=== PATIENT | female | born 1930 | race Hispanic/Latino ===

== ENCOUNTER 2017-12-21 17:00 | Inpatient (IN) | payer MEDICARE, BC ==
[2017-12-22] MEDS ORDERED: Patient's Own Med (Famotidine [Pepcid] 40 MG) PO SCH (22:00)
[2017-12-23 07:25] LABS: BASO # 0.1 K/uL (0.0-0.2); EOS # 0.3 K/uL (0.0-0.7); EOS % 3.8 % (0.0-4.0); HEMOGLOBIN 13.6 g/dL (12.0-16.0); LYMPH # 1.2 K/uL (1.0-4.3); LYMPH % 16.9 % (20.0-40.0); MEAN CELL VOLUME 92.8 fl (81.0-99.0); MEAN CORPUSCULAR HEMOGLOBIN 31.4 pg (27.0-31.0); MEAN CORPUSCULAR HGB CONC 33.8 g/dL (33.0-37.0); MONO # 0.6 K/uL (0.0-0.8); MONO % 8.2 % (0.0-10.0); NEUT # 5.1 K/uL (1.8-7.0); NEUT % 70.1 % (50.0-75.0); RBC 4.35 Mil/uL (3.80-5.20); RED CELL DISTRIBUTION WIDTH 13.3 % (11.5-14.5); WHITE BLOOD COUNT 7.3 K/uL (4.8-10.8)
[2017-12-23] MEDS ORDERED: CYANOCOBALAMIN (VITAMIN B-12) 250 MCG TABLET PO SCH (09:00)
[2017-12-23] MEDS ORDERED: Patient's Own Med (Raloxifene [Evista] 60 MG) PO SCH (09:00)
[2017-12-23 09:17] LABS: ALB/GLOB RATIO 1.2 (1.0-2.1); ALBUMIN 3.4 g/dL (3.5-5.0); ALT/SGPT 28 U/L (9-52); AST/SGOT 31 U/L (14-36); BLOOD UREA NITROGEN 23 mg/dl (7-17); CALCIUM 9.1 mg/dL (8.4-10.2); GFR NON-AFRICAN AMERICAN 52
[2017-12-23 11:01] VITALS: BMI 25.1
--- NOTE | 2017-12-23 12:46 | CP.PCM.CON ---
History of Present Illness - History of Present Illness History of Present Illness: 87 year old female admitted to acute rehab with diagnosis of subdural heamatoma, with other diagnosis of aortic stenosis, melanoma, shoulder injury now for inpatient rehab. Review of Systems - Musculoskeletal Musculoskeletal: Muscle Weakness Past Patient History - Infectious Disease Hx of Infectious Diseases: None - Tetanus Immunizations Tetanus Immunization: Unknown - Past Medical History & Family History Past Medical History?: Yes - Past Social History Smoking Status: Never Smoked - CARDIAC Hx Cardiac Disorders: (aortic stenosis) Hx Atrial Fibrillation: Yes Hx Congestive Heart Failure: Yes Hx Hypercholesterolemia: Yes Hx Hypertension: Yes - NEUROLOGICAL Hx Dizziness: Yes Hx Syncope: Yes - HEENT Hx Cataracts: Yes (b/l Sx) Other/Comment: hard of hearing left ear from fall - HEMATOLOGICAL/ONCOLOGICAL Hx AIDS: No Hx Cancer: Yes (melanoma back mass) Hx Human Immunodeficiency Virus (HIV): No - INTEGUMENTARY Hx Melanoma: Yes (back mass) - MUSCULOSKELETAL/RHEUMATOLOGICAL Hx Falls: Yes Hx Fractures: Yes (left shoulder) Hx Osteoporosis: Yes - GENITOURINARY/GYNECOLOGICAL Hx Urinary Tract Infection: Yes - PSYCHIATRIC Hx Substance Use: No - SURGICAL HISTORY Hx Cardiac Catheterization: Yes Hx Hysterectomy: Yes Hx Valve Replacement: Yes (aortic valve) - ANESTHESIA Hx Anesthesia: Yes Hx Anesthesia Reactions: No Hx Malignant Hyperthermia: No Meds Allergies/Adverse Reactions: Allergies Allergy/AdvReac Type Severity Reaction Status Date / Time No Known Allergies Allergy Verified 10/08/16 11:44 - Medications Medications: Current Medications Acetaminophen (Tylenol 325mg Tab) 650 mg PO Q4 PRN PRN Reason: Pain scale 1-10. Amiodarone HCl (Cordarone) 200 mg PO QPM [facility] Last Admin: 12/22/17 18:27 Dose: 200 mg Atorvastatin Calcium (Lipitor) 10 mg PO HS [facility] Last Admin: 12/22/17 21:59 Dose: 10 mg Calcium Carbonate (Oscal) 500 mg PO DAILY [facility] Last Admin: 12/23/17 08:34 Dose: 500 mg Cyanocobalamin (Vitamin B-12) 250 mcg PO DAILY [facility] Last Admin: 12/23/17 08:33 Dose: 250 mcg Famotidine (Pepcid) 40 mg PO [facility] Last Admin: 12/22/17 21:59 Dose: 40 mg Folic Acid (Folic Acid) 1 mg PO DAILY [facility] Last Admin: 12/23/17 08:35 Dose: 1 mg Furosemide (Lasix) 20 mg PO DAILY [facility] Last Admin: 12/23/17 08:33 Dose: 20 mg Pyridoxine HCl (Vitamin B6) 25 mg PO DAILY [facility] Last Admin: 12/23/17 08:35 Dose: 25 mg Physical Exam - Constitutional Appears: Well - Head Exam Head Exam: ATRAUMATIC, NORMAL INSPECTION, NORMOCEPHALIC - Eye Exam Eye Exam: PERRL Pupil Exam: NORMAL ACCOMODATION, PERRL - ENT Exam ENT Exam: Mucous Membranes Moist, Normal Exam - Neck Exam Neck exam: Positive for: Normal Inspection - Respiratory Exam Respiratory Exam: Clear to Auscultation Bilateral, NORMAL BREATHING PATTERN - Cardiovascular Exam Cardiovascular Exam: REGULAR RHYTHM - GI/Abdominal Exam GI & Abdominal Exam: Normal Bowel Sounds - Rectal Exam Rectal Exam: NORMAL INSPECTION - Exam External exam: NORMAL EXTERNAL EXAM - Extremities Exam Extremities exam: Positive for: normal inspection Additional comments: problems with decreased strength, balance - Back Exam Back exam: NORMAL INSPECTION - Neurological Exam Neurological exam: Alert - Psychiatric Exam Psychiatric exam: Normal Affect, Normal Mood - Skin Skin Exam: Dry, Normal Color, Warm Results - Vital Signs Recent Vital Signs: Last Vital Signs Temp 97.7 F 12/23/17 07:30 Pulse 60 12/23/17 07:30 Resp 20 12/23/17 07:30 BP 125/55 L 12/23/17 08:33 Pulse Ox 96 12/23/17 07:30 - Labs Result Diagrams: 12/23/17 05:20 12/23/17 08:30 Labs: Laboratory Results - last 24 hr 12/23/17 12/23/17 12/23/17 05:20 05:20 08:30 WBC 7.3 RBC 4.35 Hgb 13.6 Hct 40.3 MCV 92.8 MCH 31.4 H MCHC 33.8 RDW 13.3 Plt Count 133 MPV 9.0 Neut % (Auto) 70.1 Lymph % (Auto) 16.9 L [place] % (Auto) 8.2 Eos % (Auto) 3.8 Baso % (Auto) 1.0 Neut # (Auto) 5.1 Lymph # (Auto) 1.2 [place] # (Auto) 0.6 Eos # (Auto) 0.3 Baso # (Auto) 0.1 Sodium 140 Potassium 4.2 Chloride 109 H Carbon Dioxide 25 Anion Gap 10 BUN 23 H Creatinine 1.0 Est GFR ( Amer) > 60 Est GFR (Non-Af Amer) 52 Random Glucose 86 Calcium 9.1 Magnesium 2.2 Total Bilirubin 0.8 AST 31 ALT 28 Alkaline Phosphatase 47 Total Protein 6.3 Albumin 3.4 L Globulin 2.9 Albumin/Globulin Ratio 1.2 Vitamin B12 > 1000 H TSH 3rd Generation 3.03 Assessment & Plan (1) Facial bones, closed fracture Status: Acute (2) Head injury Status: Acute (3) Humerus fracture Status: Acute (4) Impacted cerumen of right ear Status: Acute (5) Metacarpal bone fracture Status: Acute (6) Near syncope Status: Acute (7) Orbital floor fracture Status: Acute Priority: Medium (8) Subdural hematoma Assessment and Plan: plan for physical, occupational, rec therapy for range of motion, strengthening, transfers and gait training, ADL eval and equipment evaluation Status: Acute
--- NOTE | 2017-12-23 12:52 | PCM.OPOC ---
Physiatry Overall Plan of Care - Overall Plan of Care Estimated Length of Stay in Weeks: 3 Rehab Impairment: Mobility, Gait, Balance, Coordination Etiologic Diagnosis: Traumatic Brain Injury Rehab/Medical Prognosis: Fair - Anticipated Interventions Physical Therapy:: Yes Occupational Therapy:: Yes Speech Therapy:: Yes Recreational Therapy:: Yes - Therapy Goals Bed Mobility: Independent Ambulation: Supervision Functional Positional Changes:: Independent - Functional Outcomes Functional Outcomes: fair - Discharge Plan Identification of Barriers to Discharge: Cognition Discharge Destination: Home
--- NOTE | 2017-12-23 15:06 | CP.PCM.CON ---
History of Present Illness - History of Present Illness History of Present Illness: Neurology Consultation Note: Mrs. Boo is an 87-year-old woman with a past medical history of atrial fibrillation (not on anticoagulation), osteoporosis, aortic stenosis s/p TAVR, HTN, dyslipidemia, melanoma s/p removal, who was transferred to acute rehab after [place] [facility] [place] that resulted in a small SDH on the left side along with temporal/occipital bone fracture. She continues to have left ear pain and headache. She has limitation of movement on the left upper extremity due to a previous fall and shoulder injury. Otherwise, the patient has no complaints and is ready for rehab. Review of Systems - Constitutional Constitutional: absent: As Per HPI, Anorexia, Chills, Daytime Sleepiness, Excessive Sweating, Fatigue, Fever, Frequent Falls, Headache, Increased Appetite, Lethargy, Malaise, Night Sweats, Snoring, Sleep Apnea, Weight Gain, Weight Loss, Weakness, Other - EENT Eyes: absent: As Per HPI, Blind Spots, Blurred Vision, Change in Vision, Decreased Night Vision, Diplopia, Discharge, Dry Eye, Exophthalmos, Floaters, Irritation, Itchy Eyes, Loss of Peripheral Vision, Pain, Photophobia, Requires Corrective Lenses, Sees Flashes, Spots in Vision, Tunnel Vision, Other Visual Disturbances, Loss of Vision, Other Ears: Decreased Hearing Nose/Mouth/Throat: absent: As Per HPI, Epistaxis, Nasal Congestion, Nasal Discharge, Nasal Obstruction, Nasal Trauma, Nose Pain, Post Nasal Drip, Sinus Pain, Sinus Pressure, Bleeding Gums, Change in Voice, Dental Pain, Dry Mouth, Dysphagia, Halitosis, Hoarsness, Lip Swelling, Mouth Lesions, Mouth Pain, Odynophagia, Sore Throat, Throat Swelling, Tongue Swelling, Facial Pain, Neck P ain, Neck Mass, Other - Cardiovascular Cardiovascular: As Per HPI - Respiratory Respiratory: absent: As Per HPI, Cough, Dyspnea, Hemoptysis, Dyspnea on Exertion, Wheezing, Snoring, Stridor, Pain on Inspiration, Chest Congestion, Excessive Mucous Production, Change in Mucous Color, Pain with Coughing, Other - Gastrointestinal Gastrointestinal: absent: As Per HPI, Abdominal Pain, Belching, Bloating, Change in Bowel Habits, Change in Stool Character, Coffee Ground Emesis, Constipation, Cramping, Diarrhea, Dyspepsia, Dysphagia, Early Satiety, Excessive Flatus, Fecal Incontinence, Heartburn, Hematemesis, Hematochezia, Loose Stools, Melena, Nausea, Odynophagia, Temesmus, Vomiting, Other - Musculoskeletal Musculoskeletal: As Per HPI - Neurological Neurological: As Per HPI - Psychiatric Psychiatric: absent: As Per HPI, Abnormal Sleep Pattern, Anhedonia, Anxiety, Auditory Hallucinations, Behavioral Changes, Change in Appetite, Change in Libido, Confusion, Depression, Difficulty Concentrating, Hallucinations, Homicidal Ideation, Hopelessness, Irritability, Memory Loss, Mood Swings, Panic Attacks, Paranoia, Suicidal Ideation, Visual Hallucinations, Tactile [place] llucinations, Other - Endocrine Endocrine: absent: As Per HPI, Change in Body Appearance, Change in Libido, Cold Intolorance, Deepening of Voice, Excessive Sweating, Fatigue, Flushing, Heat Intolorance, Increase in Ring/Shoe/Hat Size, Palpitations, Polydipsia, Polyphagia, Polyuria, Other - Hematologic/Lymphatic Hematologic: As Per HPI Past Patient History - Infectious Disease Hx of Infectious Diseases: None - Tetanus Immunizations Tetanus Immunization: Unknown - Past Medical History & Family History Past Medical History?: Yes - Past Social History Smoking Status: Never Smoked - CARDIAC Hx Cardiac Disorders: (aortic stenosis) Hx Atrial Fibrillation: Yes Hx Congestive Heart Failure: Yes Hx Hypercholesterolemia: Yes Hx Hypertension: Yes - NEUROLOGICAL Hx Dizziness: Yes Hx Syncope: Yes - HEENT Hx Cataracts: Yes (b/l Sx) Other/Comment: hard of hearing left ear from fall - HEMATOLOGICAL/ONCOLOGICAL Hx AIDS: No Hx Cancer: Yes (melanoma back mass) Hx Human Immunodeficiency Virus (HIV): No - INTEGUMENTARY Hx Melanoma: Yes (back mass) - MUSCULOSKELETAL/RHEUMATOLOGICAL Hx Falls: Yes Hx Fractures: Yes (left shoulder) Hx Osteoporosis: Yes - GENITOURINARY/GYNECOLOGICAL Hx Urinary Tract Infection: Yes - PSYCHIATRIC Hx Substance Use: No - SURGICAL HISTORY Hx Cardiac Catheterization: Yes Hx Hysterectomy: Yes Hx Valve Replacement: Yes (aortic valve) - ANESTHESIA Hx Anesthesia: Yes Hx Anesthesia Reactions: No Hx Malignant Hyperthermia: No Meds Allergies/Adverse Reactions: Allergies Allergy/AdvReac Type Severity Reaction Status Date / Time No Known Allergies Allergy Verified 10/08/16 11:44 - Medications Medications: Current Medications Acetaminophen (Tylenol 325mg Tab) 650 mg PO Q4 PRN PRN Reason: Pain scale 1-10. Last Admin: 12/23/17 13:04 Dose: 650 mg Amiodarone HCl (Cordarone) 200 mg PO QPM [facility] Last Admin: 12/22/17 18:27 Dose: 200 mg Atorvastatin Calcium (Lipitor) 10 mg PO HS [facility] Last Admin: 12/22/17 21:59 Dose: 10 mg Calcium Carbonate (Oscal) 500 mg PO DAILY [facility] Last Admin: 12/23/17 08:34 Dose: 500 mg Famotidine (Pepcid) 40 mg PO HS [facility] Last Admin: 12/22/17 21:59 Dose: 40 mg Folic Acid (Folic Acid) 1 mg PO DAILY [facility] Last Admin: 12/23/17 08:35 Dose: 1 mg Furosemide (Lasix) 20 mg PO DAILY [facility] Last Admin: 12/23/17 08:33 Dose: 20 mg Home Med (Raloxifene [Evista]) 60 mg PO DAILY [facility] Pyridoxine HCl (Vitamin B6) 25 mg PO DAILY [facility] Last Admin: 12/23/17 08:35 Dose: 25 mg Physical Exam - Constitutional Appears: Well - Head Exam Additional comments: left occipital fracture - Eye Exam Eye Exam: EOMI, Normal appearance, PERRL - ENT Exam ENT Exam: Mucous Membranes Moist, Normal Exam - Respiratory Exam Respiratory Exam: Clear to Auscultation Bilateral, NORMAL BREATHING PATTERN - Cardiovascular Exam Cardiovascular Exam: REGULAR RHYTHM - GI/Abdominal Exam GI & Abdominal Exam: Normal Bowel Sounds, Soft. absent: Tenderness - Extremities Exam Extremities exam: Positive for: normal inspection - Neurological Exam Neurological exam: Abnormal Gait, Alert, CN II-XII Intact, Oriented x3, Reflexes Normal Additional comments: cognition is normal. Speech is fluent. Left upper extremity restricted by pain, but no focal neurological deficits noted. Sensation is intact throughout. - Psychiatric Exam Psychiatric exam: Normal Affect, Normal Mood Results - Vital Signs Recent Vital Signs: Last Vital Signs Temp 97.7 F 12/23/17 07:30 Pulse 60 12/23/17 07:30 Resp 20 12/23/17 07:30 BP 125/55 L 12/23/17 08:33 Pulse Ox 96 12/23/17 07:30 - Labs Result Diagrams: 12/23/17 05:20 12/23/17 08:30 Labs: Laboratory Results - last 24 hr 12/23/17 12/23/1718 05:20 05:20 08:30 WBC 7.3 RBC 4.35 Hgb 13.6 Hct 40.3 MCV 92.8 MCH 31.4 H MCHC 33.8 RDW 13.3 Plt Count 133 MPV 9.0 Neut % (Auto) 70.1 Lymph % (Auto) 16.9 L [place] % (Auto) 8.2 Eos % (Auto) 3.8 Baso % (Auto) 1.0 Neut # (Auto) 5.1 Lymph # (Auto) 1.2 [place] # (Auto) 0.6 Eos # (Auto) 0.3 Baso # (Auto) 0.1 Sodium 140 Potassium 4.2 Chloride 109 H Carbon Dioxide 25 Anion Gap 10 BUN 23 H Creatinine 1.0 Est GFR ( Amer) > 60 Est GFR (Non-Af Amer) 52 Random Glucose 86 Calcium 9.1 Magnesium 2.2 Total Bilirubin 0.8 AST 31 ALT 28 Alkaline Phosphatase 47 Total Protein 6.3 Albumin 3.4 L Globulin 2.9 Albumin/Globulin Ratio 1.2 Vitamin B12 > 1000 H TSH 3rd Generation 3.03 Assessment & Plan (1) Syncope Assessment and Plan: Likely due to neuro-cardiogenic causes. Continue amiodarone and cardiology recommendations. Status: Acute (2) Subdural hematoma Assessment and Plan: Will obtain a repeat CT head if needed. However, the patient is clinically stable. The non-contrast CT head can be done in one month, if the patient does not have any clinical worsening. Otherwise, it should be obtained immediately if the patient has any new weakness, seizures, or change in mental status. Status: Acute (3) Temporal bone fracture Assessment and Plan: This is stable and does not require surgical intervention at this time. Status: Acute
--- NOTE | 2017-12-23 20:54 | CP.PCM.HP ---
History of Present Illness - History of Present Illness History of Present Illness: an 87yo female with past medical history of A.fib (on ASA), osteoporosis, aortic stenosis s/p TAVR, HTN, dyslipidemia, melanoma s/p removal, falls who went to ED for fall. Patient reports she was with her friend at the [employer] when she suddenly blacked out and fell. Patient hit the back of her head. She does not remember falling. She reports her friend did not see her shaking and she did not bite her tongue or have incontinence. She has fallen in the past, but has not "blacked out" before. She was not drinking at the time at all. Patient denies having any chest pain, palpitations, vision changes or shortness of breath at the time of the incident. She denies nausea/vomiting/diarrhea, fever/chills, numbness/tingling, dysuria or hematuria. IN [facility] stay she was found to have L small subdural hematoma and L non-displaced occipital fracture. Neurosurgery evaluated patient and reports no surgical intervention at this time. Patient also had some bleeding from L ear. She was evaluated by ENT who reports patient could have had small temporal bone fracture. She was recommended to follow up with ENT as outpatient. Cardiology and neurology evaluated patient. She had carotid doppler which showed 20-39% stenosis bilaterally. Echo reviewed and showed normal EF, mod reduced RV systolic function, mod pulm HTN. Anticoagulation for a.fib was placed on hold for subdural hematoma. Home meds were continued. UA was positive for Leukesterase and urine culture was contaminated. Patient was on short course of antibiotics at the hospital and denies having any urinary symptoms. Sent to Acute Rehab due to Acute CVA, Weakness and Physical deconditioning. Present on Admission - Present on Admission Any Indicators Present on Admission: No Review of Systems - Review of Systems All systems: reviewed and no additional remarkable complaints except Review of Systems: as per HPI Past Patient History - Infectious Disease Hx of Infectious Diseases: None - Tetanus Immunizations Tetanus Immunization: Unknown - Past Medical History & Family History Past Medical History?: Yes Past Family History: Reviewed and not pertinent - Past Social History Smoking Status: Never Smoked Alcohol: None Drugs: Denies - CARDIAC Hx Cardiac Disorders: (aortic stenosis) Hx Atrial Fibrillation: Yes Hx Congestive Heart Failure: Yes Hx Hypercholesterolemia: Yes Hx Hypertension: Yes - NEUROLOGICAL Hx Dizziness: Yes Hx Syncope: Yes - HEENT Hx Cataracts: Yes (b/l Sx) Other/Comment: hard of hearing left ear from fall - HEMATOLOGICAL/ONCOLOGICAL Hx AIDS: No Hx Cancer: Yes (melanoma back mass) Hx Human Immunodeficiency Virus (HIV): No - INTEGUMENTARY Hx Melanoma: Yes (back mass) - MUSCULOSKELETAL/RHEUMATOLOGICAL Hx Falls: Yes Hx Fractures: Yes (left shoulder) Hx Osteoporosis: Yes - GENITOURINARY/GYNECOLOGICAL Hx Urinary Tract Infection: Yes - PSYCHIATRIC Hx Substance Use: No - SURGICAL HISTORY Hx Cardiac Catheterization: Yes Hx Hysterectomy: Yes Hx Valve Replacement: Yes (aortic valve) - ANESTHESIA Hx Anesthesia: Yes Hx Anesthesia Reactions: No Hx Malignant Hyperthermia: No Meds Allergies/Adverse Reactions: Allergies Allergy/AdvReac Type Severity Reaction Status Date / Time No Known Allergies Allergy Verified 10/08/16 11:44 Physical Exam - Constitutional Appears: Well, In Acute Distress - Head Exam Head Exam: ATRAUMATIC, NORMAL INSPECTION, NORMOCEPHALIC - Eye Exam Eye Exam: EOMI, Normal appearance, PERRL Pupil Exam: NORMAL ACCOMODATION, PERRL - ENT Exam ENT Exam: Mucous Membranes Moist, Normal Exam - Neck Exam Neck exam: Positive for: Full Rom Additional comments: Left side neck Ecchymoses. Tenderness. - Respiratory Exam Respiratory Exam: Clear to Auscultation Bilateral, NORMAL BREATHING PATTERN - Cardiovascular Exam Cardiovascular Exam: REGULAR RHYTHM, +S1, +S2 - GI/Abdominal Exam GI & Abdominal Exam: Normal Bowel Sounds, Soft. absent: Tenderness - Extremities Exam Extremities exam: Positive for: normal inspection - Back Exam Back exam: NORMAL INSPECTION Additional comments: Round Surgical scar on Left upper back - Neurological Exam Neurological exam: Abnormal Gait, Alert, CN II-XII Intact, Motor Sensory Deficit, Oriented x3, Reflexes Normal - Psychiatric Exam Psychiatric exam: Normal Affect, Normal Mood - Skin Skin Exam: Dry, Intact, Normal Color, Warm Results - Vital Signs Recent Vital Signs: Last Vital Signs Temp 97.7 F 12/23/17 07:30 Pulse 60 12/23/17 18:00 Resp 20 12/23/17 07:30 BP 132/67 12/23/17 18:00 Pulse Ox 96 12/23/17 07:30 - Labs Result Diagrams: 12/23/17 05:20 12/23/17 08:30 Labs: Laboratory Results - last 24 hr 12/23/17 12/23/17 12/23/17 05:20 05:20 08:30 WBC 7.3 RBC 4.35 Hgb 13.6 Hct 40.3 MCV 92.8 MCH 31.4 H MCHC 33.8 RDW 13.3 Plt Count 133 MPV 9.0 Neut % (Auto) 70.1 Lymph % (Auto) 16.9 L [place] % (Auto) 8.2 Eos % (Auto) 3.8 Baso % (Auto) 1.0 Neut # (Auto) 5.1 Lymph # (Auto) 1.2 [place] # (Auto) 0.6 Eos # (Auto) 0.3 Baso # (Auto) 0.1 Sodium 140 Potassium 4.2 Chloride 109 H Carbon Dioxide 25 Anion Gap 10 BUN 23 H Creatinine 1.0 Est GFR ( Amer) > 60 Est GFR (Non-Af Amer) 52 Random Glucose 86 Calcium 9.1 Magnesium 2.2 Total Bilirubin 0.8 AST 31 ALT 28 Alkaline Phosphatase 47 Total Protein 6.3 Albumin 3.4 L Globulin 2.9 Albumin/Globulin Ratio 1.2 Vitamin B12 > 1000 H TSH 3rd Generation 3.03 Assessment & Plan (1) Syncope Status: Acute (2) Head injury Status: Acute (3) Subdural hematoma Assessment and Plan: Generalized Weakness Physical Deconditioning Status: Acute (4) Temporal bone fracture Status: Acute - Assessment and Plan (Free Text) Plan: No anticoagulation or anti-PLT RX PT/OT Pain Medication PRN Physiatry and Neurology Consult
--- NOTE | 2017-12-23 20:56 | CP.PCM.PN ---
Subjective - Date & Time of Evaluation Date of Evaluation: 12/23/17 Time of Evaluation: 12:55 Objective - Vital Signs/Intake and Output Vital Signs (last 24 hours): Temp Pulse Resp BP Pulse Ox 97.7 F 60 20 132/67 96 12/23/17 07:30 12/23/17 18:00 12/23/17 07:30 12/23/17 18:00 12/23/17 07:30 - Medications Medications: Current Medications Acetaminophen (Tylenol 325mg Tab) 650 mg PO Q4 PRN PRN Reason: Pain scale 1-10. Last Admin: 12/23/17 13:04 Dose: 650 mg Amiodarone HCl (Cordarone) 200 mg PO QPM [facility] Last Admin: 12/23/17 18:00 Dose: 200 mg Atorvastatin Calcium (Lipitor) 10 mg PO HS [facility] Last Admin: 12/22/17 21:59 Dose: 10 mg Calcium Carbonate (Oscal) 500 mg PO DAILY [facility] Last Admin: 12/23/17 08:34 Dose: 500 mg Famotidine (Pepcid) 40 mg PO HS [facility] Last Admin: 12/22/17 21:59 Dose: 40 mg Folic Acid (Folic Acid) 1 mg PO DAILY [facility] Last Admin: 12/23/17 08:35 Dose: 1 mg Furosemide (Lasix) 20 mg PO DAILY [facility] Last Admin: 12/23/17 08:33 Dose: 20 mg Home Med (Raloxifene [Evista]) 60 mg PO DAILY [facility] Pyridoxine HCl (Vitamin B6) 25 mg PO DAILY [facility] Last Admin: 12/23/17 08:35 Dose: 25 mg - Labs Labs: 12/23/17 05:20 12/23/17 08:30
[2017-12-24] MEDS: Patient's Own Med (Raloxifene [Evista] 60 MG) PO SCH (08:40)
[2017-12-24] MEDS ORDERED: Artificial Tears Opht Soln OU PRN (18:54)
[2017-12-24] MEDS: Lubricant Eye Drops UD OU PRN (21:34)
--- NOTE | 2017-12-24 22:18 | CP.PCM.PN ---
Subjective - Date & Time of Evaluation Date of Evaluation: 12/24/17 Time of Evaluation: 16:05 Objective - Vital Signs/Intake and Output Vital Signs (last 24 hours): Temp Pulse Resp BP Pulse Ox 97.7 F 60 20 136/68 98 12/24/17 08:48 12/24/17 17:12 12/24/17 08:48 12/24/17 17:12 12/24/17 09:25 - Medications Medications: Current Medications Acetaminophen (Tylenol 325mg Tab) 650 mg PO Q4 PRN PRN Reason: Pain scale 1-10. Last Admin: 12/24/17 10:47 Dose: 650 mg Amiodarone HCl (Cordarone) 200 mg PO QPM [facility] Last Admin: 12/24/17 17:12 Dose: 200 mg Artificial Tears (Refresh Opth Soln) 0.3 ml OU Q6 PRN PRN Reason: Dry eyes Last Admin: 12/24/17 21:34 Dose: 0.3 ml Atorvastatin Calcium (Lipitor) 10 mg PO HS [facility] Last Admin: 12/24/17 21:18 Dose: 10 mg Calcium Carbonate (Oscal) 500 mg PO DAILY [facility] Last Admin: 12/24/17 08:37 Dose: 500 mg Famotidine (Pepcid) 40 mg PO HS [facility] Last Admin: 12/24/17 21:18 Dose: 40 mg Folic Acid (Folic Acid) 1 mg PO DAILY [facility] Last Admin: 12/24/17 08:37 Dose: 1 mg Furosemide (Lasix) 20 mg PO DAILY [facility] Last Admin: 12/24/17 08:37 Dose: 20 mg Home Med (Raloxifene [Evista]) 60 mg PO DAILY [facility] Last Admin: 12/24/17 08:40 Dose: Not Given Pyridoxine HCl (Vitamin B6) 25 mg PO DAILY [facility] Last Admin: 12/24/17 08:37 Dose: 25 mg - Labs Labs: 12/23/17 05:20 12/23/17 08:30
[2017-12-25] MEDS: Patient's Own Med (Raloxifene [Evista] 60 MG) PO SCH (08:10)
--- NOTE | 2017-12-25 13:06 | CP.PCM.PN ---
Subjective - Date & Time of Evaluation Date of Evaluation: 12/25/17 Time of Evaluation: 12:00 - Subjective Subjective: mild knee discomfort, no acute complaints at present Objective - Vital Signs/Intake and Output Vital Signs (last 24 hours): Temp Pulse Resp BP Pulse Ox 97.3 F L 60 18 140/66 97 12/25/17 09:49 12/25/17 09:49 12/25/17 09:49 12/25/17 09:49 12/24/17 20:10 - Medications Medications: Current Medications Acetaminophen (Tylenol 325mg Tab) 650 mg PO Q4 PRN PRN Reason: Pain scale 1-10. Last Admin: 12/24/17 10:47 Dose: 650 mg Amiodarone HCl (Cordarone) 200 mg PO QPM [facility] Last Admin: 12/24/17 17:12 Dose: 200 mg Artificial Tears (Refresh Opth Soln) 0.3 ml OU Q6 PRN PRN Reason: Dry eyes Last Admin: 12/24/17 21:34 Dose: 0.3 ml Atorvastatin Calcium (Lipitor) 10 mg PO HS [facility] Last Admin: 12/24/17 21:18 Dose: 10 mg Calcium Carbonate (Oscal) 500 mg PO DAILY [facility] Last Admin: 12/25/17 08:08 Dose: 500 mg Famotidine (Pepcid) 40 mg PO HS [facility] Last Admin: 12/24/17 21:18 Dose: 40 mg Folic Acid (Folic Acid) 1 mg PO DAILY [facility] Last Admin: 12/25/17 08:07 Dose: 1 mg Furosemide (Lasix) 20 mg PO DAILY [facility] Last Admin: 12/25/17 08:08 Dose: 20 mg Home Med (Raloxifene [Evista]) 60 mg PO DAILY [facility] Last Admin: 12/25/17 08:10 Dose: Not Given Pyridoxine HCl (Vitamin B6) 25 mg PO DAILY [facility] Last Admin: 12/25/17 08:07 Dose: 25 mg - Labs Labs: 12/23/17 05:20 12/23/17 08:30 - Head Exam Head Exam: ATRAUMATIC, NORMAL INSPECTION, NORMOCEPHALIC - Eye Exam Eye Exam: EOMI, Normal appearance, PERRL Pupil Exam: NORMAL ACCOMODATION - ENT Exam ENT Exam: Mucous Membranes Moist, Normal Exam - Neck Exam Neck Exam: Full ROM, Normal Inspection - Respiratory Exam Respiratory Exam: Clear to Ausculation Bilateral, NORMAL BREATHING PATTERN - Cardiovascular Exam Cardiovascular Exam: REGULAR RHYTHM - GI/Abdominal Exam GI & Abdominal Exam: Soft, Normal Bowel Sounds - Rectal Exam Rectal Exam: NORMAL INSPECTION - Exam External exam: NORMAL EXTERNAL EXAM - Extremities Exam Extremities Exam: Normal Capillary Refill, Normal Inspection - Back Exam Back Exam: NORMAL INSPECTION - Neurological Exam Neurological Exam: Alert, Awake Neuro motor strength exam: Left Upper Extremity: 3, Right Upper Extremity: 3, Left Lower Extremity: 3, Right Lower Extremity: 3 - Psychiatric Exam Psychiatric exam: Normal Affect, Normal Mood - Skin Skin Exam: Dry, Intact Assessment and Plan (1) Facial bones, closed fracture Status: Acute (2) Head injury Status: Acute (3) Humerus fracture Status: Acute (4) Impacted cerumen of right ear Status: Acute (5) Metacarpal bone fracture Status: Acute (6) Near syncope Status: Acute (7) Orbital floor fracture Status: Acute (8) Subdural hematoma Assessment & Plan: plan for physical, occupational, rec therapy for team conference for am Status: Acute
--- NOTE | 2017-12-25 13:08 | CP.PCM.PN ---
Subjective - Date & Time of Evaluation Date of Evaluation: 12/23/17 Time of Evaluation: 20:00 - Subjective Subjective: no acute com-plaints at present Objective - Vital Signs/Intake and Output Vital Signs (last 24 hours): Temp Pulse Resp BP Pulse Ox 97.3 F L 60 18 140/66 97 12/25/17 09:49 12/25/17 09:49 12/25/17 09:49 12/25/17 09:49 12/24/17 20:10 - Medications Medications: Current Medications Acetaminophen (Tylenol 325mg Tab) 650 mg PO Q4 PRN PRN Reason: Pain scale 1-10. Last Admin: 12/24/17 10:47 Dose: 650 mg Amiodarone HCl (Cordarone) 200 mg PO QPM [facility] Last Admin: 12/24/17 17:12 Dose: 200 mg Artificial Tears (Refresh Opth Soln) 0.3 ml OU Q6 PRN PRN Reason: Dry eyes Last Admin: 12/24/17 21:34 Dose: 0.3 ml Atorvastatin Calcium (Lipitor) 10 mg PO HS [facility] Last Admin: 12/24/17 21:18 Dose: 10 mg Calcium Carbonate (Oscal) 500 mg PO DAILY [facility] Last Admin: 12/25/17 08:08 Dose: 500 mg Famotidine (Pepcid) 40 mg PO HS [facility] Last Admin: 12/24/17 21:18 Dose: 40 mg Folic Acid (Folic Acid) 1 mg PO DAILY [facility] Last Admin: 12/25/17 08:07 Dose: 1 mg Furosemide (Lasix) 20 mg PO DAILY [facility] Last Admin: 12/25/17 08:08 Dose: 20 mg Home Med (Raloxifene [Evista]) 60 mg PO DAILY [facility] Last Admin: 12/25/17 08:10 Dose: Not Given Pyridoxine HCl (Vitamin B6) 25 mg PO DAILY [facility] Last Admin: 12/25/17 08:07 Dose: 25 mg - Labs Labs: 12/23/17 05:20 12/23/17 08:30 - Head Exam Head Exam: ATRAUMATIC, NORMAL INSPECTION, NORMOCEPHALIC - Eye Exam Eye Exam: EOMI, Normal appearance, PERRL Pupil Exam: NORMAL ACCOMODATION - ENT Exam ENT Exam: Mucous Membranes Moist, Normal Exam, Normal Oropharynx - Neck Exam Neck Exam: Normal Inspection - Respiratory Exam Respiratory Exam: Clear to Ausculation Bilateral, NORMAL BREATHING PATTERN - Cardiovascular Exam Cardiovascular Exam: REGULAR RHYTHM - GI/Abdominal Exam GI & Abdominal Exam: Normal Bowel Sounds - Rectal Exam Rectal Exam: NORMAL INSPECTION - Exam External exam: NORMAL EXTERNAL EXAM - Extremities Exam Extremities Exam: Full ROM, Normal Capillary Refill, Normal Inspection - Back Exam Back Exam: NORMAL INSPECTION - Neurological Exam Neurological Exam: Alert, Awake Neuro motor strength exam: Left Upper Extremity: 3, Right Upper Extremity: 3, Left Lower Extremity: 3, Right Lower Extremity: 3 - Psychiatric Exam Psychiatric exam: Normal Affect, Normal Mood - Skin Skin Exam: Dry, Intact Assessment and Plan (1) Facial bones, closed fracture Status: Acute (2) Head injury Status: Acute (3) Humerus fracture Status: Acute (4) Impacted cerumen of right ear Status: Acute (5) Metacarpal bone fracture Status: Acute (6) Near syncope Status: Acute (7) Orbital floor fracture Status: Acute (8) Subdural hematoma Assessment & Plan: plan for range of motion, strengthening transfers and gait training Status: Acute
--- NOTE | 2017-12-25 20:26 | CP.PCM.CON ---
History of Present Illness - History of Present Illness History of Present Illness: Podiatry consult note for attending Dr. Boo: 89 y/o female Patient with PMH of atrial fibrillation, osteoporosis, aortic stenosis, HTN, dyslipidemia, melanoma. Her nurse states that the patient nails are elongated and dystrophic and the patient can't take care of it due to her current health status. Patient states that she has about 3 mycotic toe nails and they are like this since about 2 domitila. her talent analyst advised her to use topical solution for it. Patient was in the wheelchair at the visit time. Patient denies any other pedal complaint. Patient denies any recent F/N/V or C recently. PMH: atrial fibrillation, osteoporosis, aortic stenosis, HTN, dyslipidemia, melanoma PSH: TAVR and melanoma excision Allergies: NKDA Social Hx: Denies smoking, EtOH use or illicit drug use Review of Systems - Review of Systems Review of Systems: As per HPI Past Patient History - Infectious Disease Hx of Infectious Diseases: None - Tetanus Immunizations Tetanus Immunization: Unknown - Past Medical History & Family History Past Medical History?: Yes - Past Social History Smoking Status: Never Smoked - CARDIAC Hx Cardiac Disorders: Yes Hx Congestive Heart Failure: Yes Hx Hypercholesterolemia: Yes Hx Hypertension: Yes - NEUROLOGICAL Hx Dizziness: Yes Hx Syncope: Yes - HEENT Hx Cataracts: Yes (b/l Sx) Other/Comment: hard of hearing left ear from fall - HEMATOLOGICAL/ONCOLOGICAL Hx Cancer: Yes - INTEGUMENTARY Hx Melanoma: Yes (back mass) - MUSCULOSKELETAL/RHEUMATOLOGICAL Hx Arthritis: Yes - GENITOURINARY/GYNECOLOGICAL Hx Urinary Tract Infection: Yes - PSYCHIATRIC Hx Substance Use: No - SURGICAL HISTORY Hx Cardiac Catheterization: Yes Hx Hysterectomy: Yes Hx Valve Replacement: Yes (aortic valve) - ANESTHESIA Hx Anesthesia: Yes Hx Anesthesia Reactions: No Hx Malignant Hyperthermia: No Meds Allergies/Adverse Reactions: Allergies Allergy/AdvReac Type Severity Reaction Status Date / Time No Known Allergies Allergy Verified 10/08/16 11:44 - Medications Medications: Current Medications Acetaminophen (Tylenol 325mg Tab) 650 mg PO Q4 PRN PRN Reason: Pain scale 1-10. Last Admin: 12/25/17 15:11 Dose: 650 mg Amiodarone HCl (Cordarone) 200 mg PO QPM [facility] Last Admin: 12/25/17 17:25 Dose: 200 mg Artificial Tears (Refresh Opth Soln) 0.3 ml OU Q6 PRN PRN Reason: Dry eyes Last Admin: 12/24/17 21:34 Dose: 0.3 ml Atorvastatin Calcium (Lipitor) 10 mg PO HS [facility] Last Admin: 12/24/17 21:18 Dose: 10 mg Calcium Carbonate (Oscal) 500 mg PO DAILY [facility] Last Admin: 12/25/17 08:08 Dose: 500 mg Famotidine (Pepcid) 40 mg PO HS [facility] Last Admin: 12/24/17 21:18 Dose: 40 mg Folic Acid (Folic Acid) 1 mg PO DAILY [facility] Last Admin: 12/25/17 08:07 Dose: 1 mg Furosemide (Lasix) 20 mg PO DAILY [facility] Last Admin: 12/25/17 08:08 Dose: 20 mg Home Med (Raloxifene [Evista]) 60 mg PO DAILY [facility] Last Admin: 12/25/17 08:10 Dose: Not Given Pyridoxine HCl (Vitamin B6) 25 mg PO DAILY [facility] Last Admin: 12/25/17 08:07 Dose: 25 mg Physical Exam - Constitutional Appears: Well, Non-toxic, No Acute Distress - Head Exam Head Exam: ATRAUMATIC, NORMOCEPHALIC - Extremities Exam Additional comments: B/l LE focused exam: Vasc: DP/PT 1/4 b/l. Cap refill < 3 sec in all digits. Temp gradient warm to cool. diffuse superficial varicosities noted b/l on both LE. No edema Neuro: Gross sensation intact, Protective sensations deminished.. Derm: Elongated, discolored nails X 7 and thickened and dystrophic toe nails X 3. No open lesions. No clinical signs of infection. MSK: Diffuse arthritic changes in all the foot and ankle joints B/L. - Neurological Exam Neurological exam: Alert, Oriented x3 - Psychiatric Exam Psychiatric exam: Normal Affect, Normal Mood Results - Vital Signs Recent Vital Signs: Last Vital Signs Temp 97.3 F L 12/25/17 09:49 Pulse 64 12/25/17 17:25 Resp 18 12/25/17 09:49 BP 131/76 12/25/17 17:25 Pulse Ox 97 12/24/17 20:10 - Labs Result Diagrams: 12/23/17 05:20 12/23/17 08:30 Assessment & Plan - Assessment and Plan (Free Text) Assessment: 87 y/o F patient seen and evaluated in the bed side for elongated, dystrophic toe nails. Plan: Patient seen and evaluated in the bedside. Plan discussed in details with attending Dr. Boo Charts, Labs and vitals revied; Afebrile, no leukoytosis Toe nails debrided using sterile nail nippers X 7. patient tolerated the procedure well with no complications. Thank you for consulting podiatry service. - Date & Time Date: 12/25/17 Time: 20:20
[2017-12-26] MEDS: Lubricant Eye Drops UD OU PRN (08:36)
[2017-12-26] MEDS: Patient's Own Med (Raloxifene [Evista] 60 MG) PO SCH (08:38)
--- NOTE | 2017-12-26 12:09 | PSY.TMCNF ---
Nursing - Vital Signs Vital Signs (Last 8 hours): Vital Signs 12/26/17 12/26/17 12/26/17 08:28 08:37 09:00 Temperature 98.1 F 98.1 F Pulse Rate 59 L 60 Respiratory 21 21 Rate Blood Pressure 178/73 H 178/73 H 137/60 O2 Sat by Pulse 97 Oximetry Pain: 0 - Precautions: Precautions: Fall Prevention, Cardiac/Pulmonary - Medications/Other Issues Comment: (+) C/O DIZZINESS WHEN PT BENDS DOWN - Consults Comment: DR. VALLECILLO, DR. BURTON-GIBILISCO - Toileting Toileting: Supervision - Bladder Management Bladder Pattern: Normal Voiding Method: Toilet Bladder Management: Modified Independent Frequency of Accidents: 0 - Bowel Management Bowel Pattern: Normal Bowel Management: Modified Independent Frequency of Accidents: 0 - Transfers Transfers: Supervision - ADL's ADL's: Supervision - Pain Management Comments: TYLENOL PRN - Patient/Family Teaching Comments: CARE S/P SUBDURAL HEMATOMA ICLUDING REPORTABLE S/S AND SAFETY PRECAUTIONS - Goals/Time Frame Comments: PER MULTIDISCIPLINARY CARE PLAN GOALS - Provider Provider: PATRICK MEJIAN RN CRRN Physical Therapy - Bed Mobility Bed Mobility: Supervision - Transfers Wheelchair to Mat: Supervision, Verbal Cues Sit to Stand: Supervision, Verbal Cues Comment: RW - Ambulation Level of Assistance: Supervision, Verbal Cues Distance (ft.): 150 Assistive Devices: Rolling Walker Orthoses: n/a Comment: -level surface, RW, 150 feet with slow deliberate gait. -continues to demonstrate L knee valgum with well adjusted gait pattern. -x 3 trials. -note 3 collisions on L side during mobility; patient denies visual changes; pt rep orts "walker goes towards left"; pt educated on improving control of walker and actively steering device - Stair Negotiation Stairs: Level of Assistance: Supervision Number of Stairs: 8 Stairs: Assistive Devices: Left Handrail, Right Handrail Comment: 8 6inch steps with B rails with step to pattern, WBAT BLE. -uses some rotation on descent to ensure full contact of L foot on step; safe with technique - Standing Balance Static Stand: Supervision Dynamic Stand: Contact Guard Assist, Minimal Assistance - Pain Pain (assessed during therapy session): 3 Comment: -pt reports L ear feels clogged. -L facial pain, impaired sensation--intremittent - Insight/Carryover Insight/Carryover: Good - Patient/Family Education Comment: -rehab/OT goals, plan of care. -adls, transfers/mobility with assistive device. -energy conservation/work simplification. - adaptive/compensatory strtaegies. -home modificatios/adaptation recommendations--remove loose carpets, +grab bar, commode/transfer tub bench - Assessment/Plan Assessment: Pt is a 87 year old R handed female with dx- subdual hematoma, hx multiple falls. *Precautions: falls, syncope, cardiac, malignment of L knee/spine/neck. Pt limited by impaired endurance, impaired postural alignment, impaired L shoulder ROM/strength, impaired safety awareness, impaired standing balance/tolerance, impaired knowledge of adaptive/compensatory strategies, + headache/ear pain, bouts of dizziness---which impact on function/safety with self care, transfers/mobility and Iadls. Pt will continue to benefit from skilled Occuaptional Therapy to address functional impairments as needed to maxmize function/safety with self care, transfers/mobility using adaptive/compensatory strategies/devices. Pt may benefit from commode, transfer tub bench, belt operator, dressing aids pending progress--to further re-assess as pt progresses--to minimize fall risk, increase safety with bathroom. Pt will need multiple home modifications/adaptationa: removal of loose carpets, setup non- skid mat in tub. Pt may benefit from bedside commode at nights with frequent urination related to diuretics. Pt demonstrate overall improvements in transfers/mobility/self care while adering to safety measures. Pt needs reminders to properly use/maneuver with RW whilestepping/reaching back safely while pacing self. Pt encouraged to minmize bending forward/twisting,moving rapidly to decrease fall risk. *Goal: Intermittent Supervision for adls, transfers/mobility and Iadls with assistive device, home with services - Goals Timeframe: 8 days Goals: -Mod I for grooming(standing/seated), upper/lower body dressing, transfers/bed mobility, functional mobility, light homemaking/meal prep with use of assistive devices/compensatory strategies. -I/setup for upper body bathing/dressing seated on transfer tub bench--assistive device. -CAREGIVER to be I cueing/assisting pt with Iadls--safety considerations - Provider License Number: [id number] Occupational Therapy - Arousal/Attention/Orientation Patient Orientation: Person, Place, Time, Appropriate to Age, Appropriate to Situation - ADL/IADL Self Feeding: Set-up Help Grooming: Set-up Help Bathing-Upper Extremity: Verbal Cues, Contact Guard, Minimal Assistance Bathing-Lower Extremity: Minimal Assistance Dressing-Upper Extremity: Verbal Cues, Set-up Help, Minimal Assistance Dressing-Lower Extremity: Verbal Cues, Set-up Help, Minimal Assistance Comment: Pt encouraged to complete upper/lower body self seated - Sitting Balance Static Sitting: Independent without upper extremity support Dynamic Sitting: Reaches across midline, Reaches out of base of support, Reaches within base of support, Contact Guard Assist Comment: unsupported at edge of bed - Transfers Wheelchair to Bed Transfers: Supervision, Verbal Cues, Set-up Help, Contact Guard Toilet Transfers: Supervision, Verbal Cues, Set-up Help, Contact Guard Comment: shower transfer: CG and verbal cues for pivot due to slippery surfaces - Wheelchair Management Level of Assistance: Supervision, Verbal Cues, Set-up Help, Contact Guard Distance (ft.): 20 - Upper Extremity Status Right Upper Extremity Comment: A/PROM is WFLS; strength 4/5 throughout Left Upper Extremity Comment: AROM/PROM IS WFLS except shoulder--3-/5, other ranges 4/5 - Pain Pain (assessed during therapy session): 3 Comment: -pt reports L ear feels clogged. -L facial pain, impaired sensation--intremittent - Insight/Carryover Insight/Carryover: Good - Patient/Family Education Comment: -rehab/OT goals, plan of care. -adls, transfers/mobility with assistive device. -energy conservation/work simplification. -adaptive/compensatory strtaegies. -home modificatios/adaptation recommendations--remove loose carpets, +grab bar, commode/transfer tub bench - Assessment/Plan Assessment: Pt is a 87 year old R handed female with dx- subdual hematoma, hx multiple falls. *Precautions: falls, syncope, cardiac, malignment of L knee/spine/neck. Pt limited by impaired endurance, impaired postural alignment, impaired L shoulder ROM/strength, impaired safety awareness, impaired standing balance/tolerance, impaired knowledge of adaptive/compensatory strategies, + headache/ear pain, bouts of dizziness---which impact on function/safety with self care, transfers/mobility and Iadls. Pt will continue to benefit from skilled Occuaptional Therapy to address functional impairments as needed to maxmize function/safety with self care, transfers/mobility using adaptive/compensatory strategies/devices. Pt may benefit from commode, transfer tub bench, belt operator, dressing aids pending progress--to further re-assess as pt progresses--to minimize fall risk, increase safety with bathroom. Pt will need multiple home modifications/adaptationa: removal of loose carpets, setup non- skid mat in tub. Pt may benefit from bedside commode at nights with frequent urination related to diuretics. Pt demonstrate overall improvements in transfers/mobility/self care while adering to safety measures. Pt needs r eminders to properly use/maneuver with RW whilestepping/reaching back safely while pacing self. Pt encouraged to minmize bending forward/twisting,moving rapidly to decrease fall risk. *Goal: Intermittent Supervision for adls, transfers/mobility and Iadls with assistive device, home with services - Goals Timeframe: 8 days Goals: -Mod I for grooming(standing/seated), upper/lower body dressing, transfers/bed mobility, functional mobility, light homemaking/meal prep with use of assistive devices/compensatory strategies. -I/setup for upper body bathing/dressing seated on transfer tub bench--assistive device. -CAREGIVER to be I cueing/assisting pt with Iadls--safety considerations - Provider Therapist: Nely Nelson, OTR/L License Number: [id number] Speech Therapy - Plan Assessment: Pt is a 87 year old R handed female with dx- subdual hematoma, hx multiple falls. *Precautions: falls, syncope, cardiac, malignment of L knee/spine/neck. Pt limited by impaired endurance, impaired postural alignment, impaired L shoulder ROM/strength, impaired safety awareness, impaired standing balance/tolerance, impaired knowledge of adaptive/compensatory strategies, + headache/ear pain, bouts of dizziness---which impact on function/safety with self care, transfers/mobility and Iadls. Pt will continue to benefit from skilled Occuaptional Therapy to address functional impairments as needed to maxmize function/safety with self care, transfers/mobility using adaptive/compensatory strategies/devices. Pt may benefit from commode, transfer tub bench, belt operator, dressing aids pending progress--to further re-assess as pt progresses--to minimize fall risk, increase safety with bathroom. Pt will need multiple home modifications/adaptationa: removal of loose carpets, setup non- skid mat in tub. Pt may benefit from bedside commode at nights with frequent urination related to diuretics. Pt demonstrate overall improvements in transfers/mobility/self care while adering to safety measures. Pt needs r eminders to properly use/maneuver with RW whilestepping/reaching back safely while pacing self. Pt encouraged to minmize bending forward/twisting,moving rapidly to decrease fall risk. *Goal: Intermittent Supervision for adls, transfers/mobility and Iadls with assistive device, home with services Recreational Therapy - Participation Participation: Participates in Individual and/or Group Sessions, Monitors His/Her Own Leisure Time - Attendance Attendance: 3-5 times per week - Activities Leisure Activities: Television - Socialization Level of Socialization: Initiates/interacts freely with care givers and peer - Assessment Assessment/Plan: Pt is a 87 year old R handed female with dx- subdual hematoma, hx multiple falls. *Precautions: falls, syncope, cardiac, malignment of L knee/spine/neck. Pt limited by impaired endurance, impaired postural alignment, impaired L shoulder ROM/strength, impaired safety awareness, impaired standing balance/tolerance, impaired knowledge of adaptive/compensatory strategies, + headache/ear pain, bouts of dizziness---which impact on function/safety with self care, transfers/mobility and Iadls. Pt will continue to benefit from skilled Occuaptional Therapy to address functional impairments as needed to maxmize function/safety with self care, transfers/mobility using adaptive/compensatory strategies/devices. Pt may benefit from commode, transfer tub bench, belt operator, dressing aids pending progress--to further re-assess as pt progresses--to minimize fall risk, increase safety with bathroom. Pt will need multiple home modifications/adaptationa: removal of loose carpets, setup non- skid mat in tub. Pt may benefit from bedside commode at nights with frequent urination related to diuretics. Pt demonstrate overall improvements in transfers/mobility/self care while adering to safety measures. Pt needs reminders to properly use/maneuver with RW whilestepping/reaching back safely while pacing self. Pt encouraged to minmize bending forward/twisting,moving rapidly to decrease fall risk. *Goal: Intermittent Supervision for adls, transfers/mobility and Iadls with assistive device, home with services - Provider Therapist: Briana Boateng, TECHNICAL SYSTEM ANALYST #[id number] Nutrition - Current Diet Current Diet/ Supplement/ Feedings: 2 gram Na prostat sugar free 30 ml 1 per day - Appetite Percent Meal Consumed: 75-100% - Comments Comments: CARE S/P SUBDURAL HEMATOMA ICLUDING REPORTABLE S/S AND SAFETY PRECAUTIONS - Assessment/Goals/Time Frame Assessment/Goals/Time Frame: (+) C/O DIZZINESS WHEN PT BENDS DOWN - Provider Provider: Noreen Watt RD Case Management - Discharge Plan Discharge Plan: Home alone Rehabilitation Plan - Treatment Plan Treatment Plan: Physical Therapy ([id number]), Occupational Therapy, Dietary, Patient/Family Education - Recommendation Recommendation: Physical Therapy, Occupational Therapy, Dietary, Patient/Family Education - Discharge Plan Discharge to: Home (17)
--- NOTE | 2017-12-26 12:45 | CP.PCM.PN ---
Subjective - Date & Time of Evaluation Date of Evaluation: 12/26/17 Time of Evaluation: 11:00 - Subjective Subjective: no acute complaints of neck or back pain Objective - Vital Signs/Intake and Output Vital Signs (last 24 hours): Temp Pulse Resp BP Pulse Ox 98.1 F 60 21 137/60 97 12/26/17 09:00 12/26/17 09:00 12/26/17 09:00 12/26/17 09:00 12/26/17 08:28 - Medications Medications: Current Medications Acetaminophen (Tylenol 325mg Tab) 650 mg PO Q4 PRN PRN Reason: Pain scale 1-10. Last Admin: 12/26/17 08:35 Dose: 650 mg Amiodarone HCl (Cordarone) 200 mg PO QPM [facility] Last Admin: 12/25/17 17:25 Dose: 200 mg Artificial Tears (Refresh Opth Soln) 0.3 ml OU Q6 PRN PRN Reason: Dry eyes Last Admin: 12/26/17 08:36 Dose: 0.3 ml Atorvastatin Calcium (Lipitor) 10 mg PO HS [facility] Last Admin: 12/25/17 21:08 Dose: 10 mg Calcium Carbonate (Oscal) 500 mg PO DAILY [facility] Last Admin: 12/26/17 08:37 Dose: 500 mg Famotidine (Pepcid) 40 mg PO HS [facility] Last Admin: 12/25/17 21:08 Dose: 40 mg Folic Acid (Folic Acid) 1 mg PO DAILY [facility] Last Admin: 12/26/17 08:37 Dose: 1 mg Furosemide (Lasix) 20 mg PO DAILY [facility] Last Admin: 12/26/17 08:37 Dose: 20 mg Home Med (Raloxifene [Evista]) 60 mg PO DAILY [facility] Last Admin: 12/26/17 08:38 Dose: Not Given Pyridoxine HCl (Vitamin B6) 25 mg PO DAILY [facility] Last Admin: 12/26/17 08:36 Dose: 25 mg - Labs Labs: 12/23/17 05:20 12/23/17 08:30 - Head Exam Head Exam: ATRAUMATIC, NORMAL INSPECTION, NORMOCEPHALIC - Eye Exam Eye Exam: EOMI, Normal appearance, PERRL Pupil Exam: NORMAL ACCOMODATION - ENT Exam ENT Exam: Mucous Membranes Moist, Normal Exam - Neck Exam Neck Exam: Normal Inspection - Respiratory Exam Respiratory Exam: Clear to Ausculation Bilateral, NORMAL BREATHING PATTERN - Cardiovascular Exam Cardiovascular Exam: REGULAR RHYTHM - GI/Abdominal Exam GI & Abdominal Exam: Soft, Normal Bowel Sounds - Rectal Exam Rectal Exam: NORMAL INSPECTION - Exam External exam: NORMAL EXTERNAL EXAM - Extremities Exam Extremities Exam: Full ROM, Normal Capillary Refill, Normal Inspection - Back Exam Back Exam: NORMAL INSPECTION - Neurological Exam Neurological Exam: Alert, Awake Neuro motor strength exam: Left Upper Extremity: 3, Right Upper Extremity: 3, Left Lower Extremity: 3, Right Lower Extremity: 3 - Psychiatric Exam Psychiatric exam: Normal Affect, Normal Mood - Skin Skin Exam: Dry, Intact Assessment and Plan (1) Facial bones, closed fracture Status: Acute (2) Head injury Status: Acute (3) Humerus fracture Status: Acute (4) Impacted cerumen of right ear Status: Acute (5) Metacarpal bone fracture Status: Acute (6) Near syncope Status: Acute (7) Orbital floor fracture Status: Acute (8) Subdural hematoma Assessment & Plan: status post team conference pt, ot rec Dc for 17 to order equipment Status: Acute
[2017-12-26] MEDS: Lidocaine 5% Patch TD SCH (17:29)
--- NOTE | 2017-12-26 17:36 | CT ---
Date of service: 12/26/2017 PROCEDURE: CT HEAD WITHOUT CONTRAST. HISTORY: intermittent Left facial numbness COMPARISON: None available. TECHNIQUE: Axial computed tomography images were obtained through the head/brain without intravenous contrast. Radiation dose: Total exam DLP = 715.08 mGy-cm. This CT exam was performed using one or more of the following dose reduction techniques: Automated exposure control, adjustment of the mA and/or kV according to patient size, and/or use of iterative reconstruction technique. FINDINGS: HEMORRHAGE: No intracranial hemorrhage. 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 There is no mass, mass effect or abnormal extra-axial fluid collection. There is no territorial infarction. The midline sagittal structures are normal.There are coarse atherosclerotic calcifications in the cavernous carotid arteries. VENTRICLES: There is moderate age-related global parenchymal volume loss and proportionate enlargement of the ventricles and cortical sulci. CALVARIUM: The skull base and calvarium are normal. There is a small left parietal scalp hematoma. PARANASAL SINUSES: Predominantly clear. MASTOID AIR CELLS: The right mastoid air cells are clear. There is a small left mastoid effusion. OTHER FINDINGS: None. IMPRESSION: No acute intracranial abnormality. If there is a persistent focal neurologic deficit and an ongoing clinical concern for acute infarction, an MRI of the brain without intravenous contrast would be a more sensitive modality for evaluation of hyperacute/acute ischemic infarction. Small left parietal scalp hematoma. 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
--- NOTE | 2017-12-27 00:58 | CP.PCM.PN ---
Subjective - Date & Time of Evaluation Date of Evaluation: 12/25/17 Time of Evaluation: 08:05 Objective - Vital Signs/Intake and Output Vital Signs (last 24 hours): Temp Pulse Resp BP Pulse Ox 97.7 F 60 20 159/62 H 97 12/26/17 21:00 12/26/17 21:00 12/26/17 21:00 12/26/17 21:00 12/26/17 21:00 - Medications Medications: Current Medications Acetaminophen (Tylenol 325mg Tab) 650 mg PO Q4 PRN PRN Reason: Pain scale 1-10. Last Admin: 12/26/17 08:35 Dose: 650 mg Amiodarone HCl (Cordarone) 200 mg PO QPM [facility] Last Admin: 12/26/17 17:28 Dose: 200 mg Artificial Tears (Refresh Opth Soln) 0.3 ml OU Q6 PRN PRN Reason: Dry eyes Last Admin: 12/26/17 08:36 Dose: 0.3 ml Atorvastatin Calcium (Lipitor) 10 mg PO HS [facility] Last Admin: 12/26/17 21:05 Dose: 10 mg Calcium Carbonate (Oscal) 500 mg PO DAILY [facility] Last Admin: 12/26/17 08:37 Dose: 500 mg Famotidine (Pepcid) 40 mg PO HS [facility] Last Admin: 12/26/17 21:05 Dose: 40 mg Folic Acid (Folic Acid) 1 mg PO DAILY [facility] Last Admin: 12/26/17 08:37 Dose: 1 mg Furosemide (Lasix) 20 mg PO DAILY [facility] Last Admin: 12/26/17 08:37 Dose: 20 mg Home Med (Raloxifene [Evista]) 60 mg PO DAILY [facility] Last Admin: 12/26/17 08:38 Dose: Not Given Lidocaine (Lidoderm) 1 ea TD DAILY [facility] Last Admin: 12/26/17 17:29 Dose: 1 ea Pyridoxine HCl (Vitamin B6) 25 mg PO DAILY [facility] Last Admin: 12/26/17 08:36 Dose: 25 mg - Labs Labs: 12/23/17 05:20 12/23/17 08:30
--- NOTE | 2017-12-27 00:59 | CP.PCM.PN ---
Subjective - Date & Time of Evaluation Date of Evaluation: 12/26/17 Time of Evaluation: 07:50 Objective - Vital Signs/Intake and Output Vital Signs (last 24 hours): Temp Pulse Resp BP Pulse Ox 97.7 F 60 20 159/62 H 97 12/26/17 21:00 12/26/17 21:00 12/26/17 21:00 12/26/17 21:00 12/26/17 21:00 - Medications Medications: Current Medications Acetaminophen (Tylenol 325mg Tab) 650 mg PO Q4 PRN PRN Reason: Pain scale 1-10. Last Admin: 12/26/17 08:35 Dose: 650 mg Amiodarone HCl (Cordarone) 200 mg PO QPM [facility] Last Admin: 12/26/17 17:28 Dose: 200 mg Artificial Tears (Refresh Opth Soln) 0.3 ml OU Q6 PRN PRN Reason: Dry eyes Last Admin: 12/26/17 08:36 Dose: 0.3 ml Atorvastatin Calcium (Lipitor) 10 mg PO HS [facility] Last Admin: 12/26/17 21:05 Dose: 10 mg Calcium Carbonate (Oscal) 500 mg PO DAILY [facility] Last Admin: 12/26/17 08:37 Dose: 500 mg Famotidine (Pepcid) 40 mg PO HS [facility] Last Admin: 12/26/17 21:05 Dose: 40 mg Folic Acid (Folic Acid) 1 mg PO DAILY [facility] Last Admin: 12/26/17 08:37 Dose: 1 mg Furosemide (Lasix) 20 mg PO DAILY [facility] Last Admin: 12/26/17 08:37 Dose: 20 mg Home Med (Raloxifene [Evista]) 60 mg PO DAILY [facility] Last Admin: 12/26/17 08:38 Dose: Not Given Lidocaine (Lidoderm) 1 ea TD DAILY [facility] Last Admin: 12/26/17 17:29 Dose: 1 ea Pyridoxine HCl (Vitamin B6) 25 mg PO DAILY [facility] Last Admin: 12/26/17 08:36 Dose: 25 mg - Labs Labs: 12/23/17 05:20 12/23/17 08:30
[2017-12-27] MEDS: Lidocaine 5% Patch TD SCH (08:27)
[2017-12-27] MEDS: Patient's Own Med (Raloxifene [Evista] 60 MG) PO SCH (08:29)
[2017-12-27] MEDS: Lubricant Eye Drops UD OU PRN (11:49)
--- NOTE | 2017-12-27 15:25 | CP.PCM.PN ---
Subjective - Date & Time of Evaluation Date of Evaluation: 12/24/17 Time of Evaluation: 21:00 - Subjective Subjective: no acute complaints at present Objective - Vital Signs/Intake and Output Vital Signs (last 24 hours): Temp Pulse Resp BP Pulse Ox 97.5 F L 60 20 141/76 98 12/27/17 11:51 12/27/17 10:00 12/27/17 10:00 12/27/17 10:00 12/27/17 10:00 - Medications Medications: Current Medications Acetaminophen (Tylenol 325mg Tab) 650 mg PO Q4 PRN PRN Reason: Pain scale 1-10. Last Admin: 12/27/17 11:51 Dose: 650 mg Amiodarone HCl (Cordarone) 200 mg PO QPM [facility] Last Admin: 12/26/17 17:28 Dose: 200 mg Artificial Tears (Refresh Opth Soln) 0.3 ml OU Q6 PRN PRN Reason: Dry eyes Last Admin: 12/27/17 11:49 Dose: 0.3 ml Atorvastatin Calcium (Lipitor) 10 mg PO HS [facility] Last Admin: 12/26/17 21:05 Dose: 10 mg Calcium Carbonate (Oscal) 500 mg PO DAILY [facility] Last Admin: 12/27/17 08:30 Dose: 500 mg Famotidine (Pepcid) 40 mg PO HS [facility] Last Admin: 12/26/17 21:05 Dose: 40 mg Folic Acid (Folic Acid) 1 mg PO DAILY [facility] Last Admin: 12/27/17 08:28 Dose: 1 mg Furosemide (Lasix) 20 mg PO DAILY [facility] Last Admin: 12/27/17 08:29 Dose: 20 mg Home Med (Raloxifene [Evista]) 60 mg PO DAILY [facility] Last Admin: 12/27/17 08:29 Dose: 60 mg Lidocaine (Lidoderm) 1 ea TD DAILY [facility] Last Admin: 12/27/17 08:27 Dose: 1 ea Pyridoxine HCl (Vitamin B6) 25 mg PO DAILY [facility] Last Admin: 12/27/17 08:29 Dose: 25 mg - Labs Labs: 12/23/17 05:20 12/23/17 08:30 - Head Exam Head Exam: ATRAUMATIC, NORMAL INSPECTION, NORMOCEPHALIC - Eye Exam Eye Exam: EOMI, Normal appearance Pupil Exam: NORMAL ACCOMODATION, PERRL - ENT Exam ENT Exam: Mucous Membranes Moist, Normal Exam - Neck Exam Neck Exam: Normal Inspection - Respiratory Exam Respiratory Exam: Clear to Ausculation Bilateral, NORMAL BREATHING PATTERN - Cardiovascular Exam Cardiovascular Exam: REGULAR RHYTHM - GI/Abdominal Exam GI & Abdominal Exam: Soft, Normal Bowel Sounds - Rectal Exam Rectal Exam: NORMAL INSPECTION - Exam External exam: NORMAL EXTERNAL EXAM - Extremities Exam Extremities Exam: Full ROM, Normal Capillary Refill, Normal Inspection - Back Exam Back Exam: NORMAL INSPECTION - Neurological Exam Neurological Exam: Alert, Awake Neuro motor strength exam: Left Upper Extremity: 3, Right Upper Extremity: 3, Left Lower Extremity: 3, Right Lower Extremity: 3 - Psychiatric Exam Psychiatric exam: Normal Affect, Normal Mood - Skin Skin Exam: Dry, Normal Color Assessment and Plan (1) Facial bones, closed fracture Status: Acute (2) Head injury Status: Acute (3) Humerus fracture Status: Acute (4) Impacted cerumen of right ear Status: Acute (5) Metacarpal bone fracture Status: Acute (6) Near syncope Status: Acute (7) Orbital floor fracture Status: Acute (8) Subdural hematoma Assessment & Plan: plan for range of motion, strengthening, transfers and gait training for physical, and occupational therapy program. follow up regarding pain and skin eval. Status: Acute
[2017-12-28] MEDS: Patient's Own Med (Raloxifene [Evista] 60 MG) PO SCH (08:26)
[2017-12-28] MEDS: Lidocaine 5% Patch TD SCH (08:27)
--- NOTE | 2017-12-28 10:58 | CP.PCM.PN ---
Subjective - Date & Time of Evaluation Date of Evaluation: 12/27/17 Time of Evaluation: 10:25 Objective - Vital Signs/Intake and Output Vital Signs (last 24 hours): Temp Pulse Resp BP Pulse Ox 97.5 F L 54 L 20 162/74 H 95 12/28/17 07:42 12/28/17 07:42 12/28/17 07:42 12/28/17 08:27 12/28/17 07:42 - Medications Medications: Current Medications Acetaminophen (Tylenol 325mg Tab) 650 mg PO Q4 PRN PRN Reason: Pain scale 1-10. Last Admin: 12/28/17 08:23 Dose: 650 mg Amiodarone HCl (Cordarone) 200 mg PO QPM [facility] Last Admin: 12/27/17 17:18 Dose: 200 mg Artificial Tears (Refresh Opth Soln) 0.3 ml OU Q6 PRN PRN Reason: Dry eyes Last Admin: 12/27/17 11:49 Dose: 0.3 ml Atorvastatin Calcium (Lipitor) 10 mg PO HS [facility] Last Admin: 12/27/17 21:27 Dose: 10 mg Calcium Carbonate (Oscal) 500 mg PO DAILY [facility] Last Admin: 12/28/17 08:25 Dose: 500 mg Famotidine (Pepcid) 40 mg PO HS [facility] Last Admin: 12/27/17 21:27 Dose: 40 mg Folic Acid (Folic Acid) 1 mg PO DAILY [facility] Last Admin: 12/28/17 08:25 Dose: 1 mg Furosemide (Lasix) 20 mg PO DAILY [facility] Last Admin: 12/28/17 08:27 Dose: 20 mg Home Med (Raloxifene [Evista]) 60 mg PO DAILY [facility] Last Admin: 12/28/17 08:26 Dose: 60 mg Lidocaine (Lidoderm) 1 ea TD DAILY [facility] Last Admin: 12/28/17 08:27 Dose: 1 ea Pyridoxine HCl (Vitamin B6) 25 mg PO DAILY [facility] Last Admin: 12/28/17 08:27 Dose: 25 mg - Labs Labs: 12/23/17 05:20 12/23/17 08:30
[2017-12-29] MEDS: Patient's Own Med (Raloxifene [Evista] 60 MG) PO SCH (08:41)
[2017-12-29] MEDS: Lidocaine 5% Patch TD SCH (08:41)
[2017-12-29] MEDS: Lubricant Eye Drops UD OU PRN ×2 (08:42→17:39)
--- NOTE | 2017-12-30 00:55 | CP.PCM.PN ---
Subjective - Date & Time of Evaluation Date of Evaluation: 12/28/17 Time of Evaluation: 17:20 Objective - Vital Signs/Intake and Output Vital Signs (last 24 hours): Temp Pulse Resp BP Pulse Ox 97.2 F L 54 L 20 168/65 H 98 12/29/17 21:00 12/29/17 21:00 12/29/17 21:00 12/29/17 21:00 12/29/17 21:00 - Medications Medications: Current Medications Acetaminophen (Tylenol 325mg Tab) 650 mg PO Q4 PRN PRN Reason: Pain scale 1-10. Last Admin: 12/29/17 19:47 Dose: 650 mg Amiodarone HCl (Cordarone) 200 mg PO QPM [facility] Last Admin: 12/29/17 17:39 Dose: 200 mg Artificial Tears (Refresh Opth Soln) 0.3 ml OU Q6 PRN PRN Reason: Dry eyes Last Admin: 12/29/17 17:39 Dose: 0.3 ml Atorvastatin Calcium (Lipitor) 10 mg PO HS [facility] Last Admin: 12/29/17 21:20 Dose: 10 mg Calcium Carbonate (Oscal) 500 mg PO DAILY [facility] Last Admin: 12/29/17 08:40 Dose: 500 mg Famotidine (Pepcid) 40 mg PO HS [facility] Last Admin: 12/29/17 21:20 Dose: 40 mg Folic Acid (Folic Acid) 1 mg PO DAILY [facility] Last Admin: 12/29/17 08:40 Dose: 1 mg Furosemide (Lasix) 20 mg PO DAILY [facility] Last Admin: 12/29/17 08:40 Dose: 20 mg Home Med (Raloxifene [Evista]) 60 mg PO DAILY [facility] Last Admin: 12/29/17 08:41 Dose: 60 mg Lidocaine (Lidoderm) 1 ea TD DAILY [facility] Last Admin: 12/29/17 08:41 Dose: 1 ea Pyridoxine HCl (Vitamin B6) 25 mg PO DAILY [facility] Last Admin: 12/29/17 08:41 Dose: 25 mg - Labs Labs: 12/23/17 05:20 12/23/17 08:30
--- NOTE | 2017-12-30 00:55 | CP.PCM.PN ---
Subjective - Date & Time of Evaluation Date of Evaluation: 12/29/17 Time of Evaluation: 16:15 Objective - Vital Signs/Intake and Output Vital Signs (last 24 hours): Temp Pulse Resp BP Pulse Ox 97.2 F L 54 L 20 168/65 H 98 12/29/17 21:00 12/29/17 21:00 12/29/17 21:00 12/29/17 21:00 12/29/17 21:00 - Medications Medications: Current Medications Acetaminophen (Tylenol 325mg Tab) 650 mg PO Q4 PRN PRN Reason: Pain scale 1-10. Last Admin: 12/29/17 19:47 Dose: 650 mg Amiodarone HCl (Cordarone) 200 mg PO QPM [facility] Last Admin: 12/29/17 17:39 Dose: 200 mg Artificial Tears (Refresh Opth Soln) 0.3 ml OU Q6 PRN PRN Reason: Dry eyes Last Admin: 12/29/17 17:39 Dose: 0.3 ml Atorvastatin Calcium (Lipitor) 10 mg PO HS [facility] Last Admin: 12/29/17 21:20 Dose: 10 mg Calcium Carbonate (Oscal) 500 mg PO DAILY [facility] Last Admin: 12/29/17 08:40 Dose: 500 mg Famotidine (Pepcid) 40 mg PO HS [facility] Last Admin: 12/29/17 21:20 Dose: 40 mg Folic Acid (Folic Acid) 1 mg PO DAILY [facility] Last Admin: 12/29/17 08:40 Dose: 1 mg Furosemide (Lasix) 20 mg PO DAILY [facility] Last Admin: 12/29/17 08:40 Dose: 20 mg Home Med (Raloxifene [Evista]) 60 mg PO DAILY [facility] Last Admin: 12/29/17 08:41 Dose: 60 mg Lidocaine (Lidoderm) 1 ea TD DAILY [facility] Last Admin: 12/29/17 08:41 Dose: 1 ea Pyridoxine HCl (Vitamin B6) 25 mg PO DAILY [facility] Last Admin: 12/29/17 08:41 Dose: 25 mg - Labs Labs: 12/23/17 05:20 12/23/17 08:30
[2017-12-30] MEDS: Patient's Own Med (Raloxifene [Evista] 60 MG) PO SCH (08:40)
[2017-12-30] MEDS: Lidocaine 5% Patch TD SCH (08:40)
[2017-12-30] MEDS: Lubricant Eye Drops UD OU PRN ×2 (08:41→17:02)
--- NOTE | 2017-12-30 23:47 | CP.PCM.PN ---
Subjective - Date & Time of Evaluation Date of Evaluation: 12/30/17 Time of Evaluation: 15:05 Objective - Vital Signs/Intake and Output Vital Signs (last 24 hours): Temp Pulse Resp BP Pulse Ox 97.5 F L 51 L 20 133/55 L 96 12/30/17 21:14 12/30/17 21:14 12/30/17 21:14 12/30/17 21:14 12/30/17 21:14 - Medications Medications: Current Medications Acetaminophen (Tylenol 325mg Tab) 650 mg PO Q4 PRN PRN Reason: Pain scale 1-10. Last Admin: 12/30/17 17:02 Dose: 650 mg Amiodarone HCl (Cordarone) 200 mg PO QPM [facility] Last Admin: 12/30/17 17:02 Dose: 200 mg Artificial Tears (Refresh Opth Soln) 0.3 ml OU Q6 PRN PRN Reason: Dry eyes Last Admin: 12/30/17 17:02 Dose: 0.3 ml Atorvastatin Calcium (Lipitor) 10 mg PO HS [facility] Last Admin: 12/30/17 21:09 Dose: 10 mg Calcium Carbonate (Oscal) 500 mg PO DAILY [facility] Last Admin: 12/30/17 08:40 Dose: 500 mg Famotidine (Pepcid) 40 mg PO HS [facility] Last Admin: 12/30/17 21:09 Dose: 40 mg Folic Acid (Folic Acid) 1 mg PO DAILY [facility] Last Admin: 12/30/17 08:41 Dose: 1 mg Furosemide (Lasix) 20 mg PO DAILY [facility] Last Admin: 12/30/17 08:40 Dose: 20 mg Home Med (Raloxifene [Evista]) 60 mg PO DAILY [facility] Last Admin: 12/30/17 08:40 Dose: 60 mg Lidocaine (Lidoderm) 1 ea TD DAILY [facility] Last Admin: 12/30/17 08:40 Dose: 1 ea Pyridoxine HCl (Vitamin B6) 25 mg PO DAILY [facility] Last Admin: 12/30/17 08:40 Dose: 25 mg - Labs Labs: 12/23/17 05:20 12/23/17 08:30
[2017-12-31] MEDS: Patient's Own Med (Raloxifene [Evista] 60 MG) PO SCH (08:28)
[2017-12-31] MEDS: Lubricant Eye Drops UD OU PRN (08:29)
[2017-12-31] MEDS: Lidocaine 5% Patch TD SCH (08:30)
[2018-01-01] MEDS: Lubricant Eye Drops UD OU PRN (08:04)
[2018-01-01] MEDS: Patient's Own Med (Raloxifene [Evista] 60 MG) PO SCH (08:04)
[2018-01-01] MEDS: Lidocaine 5% Patch TD SCH (08:04)
--- NOTE | 2018-01-01 12:10 | CP.PCM.PN ---
Subjective - Date & Time of Evaluation Date of Evaluation: 12/31/17 Time of Evaluation: 17:20 Objective - Vital Signs/Intake and Output Vital Signs (last 24 hours): Temp Pulse Resp BP Pulse Ox 97.7 F 55 L 18 158/73 H 96 01/01/18 07:50 01/01/18 07:50 01/01/18 07:50 01/01/18 08:04 01/01/18 07:50 - Medications Medications: Current Medications Acetaminophen (Tylenol 325mg Tab) 650 mg PO Q4 PRN PRN Reason: Pain scale 1-10. Last Admin: 12/30/17 17:02 Dose: 650 mg Amiodarone HCl (Cordarone) 200 mg PO QPM [facility] Last Admin: 12/31/17 17:10 Dose: 200 mg Artificial Tears (Refresh Opth Soln) 0.3 ml OU Q6 PRN PRN Reason: Dry eyes Last Admin: 01/01/18 08:04 Dose: 0.3 ml Atorvastatin Calcium (Lipitor) 10 mg PO HS [facility] Last Admin: 12/31/17 21:18 Dose: 10 mg Calcium Carbonate (Oscal) 500 mg PO DAILY [facility] Last Admin: 01/01/18 08:03 Dose: 500 mg Famotidine (Pepcid) 40 mg PO HS [facility] Last Admin: 12/31/17 21:18 Dose: 40 mg Folic Acid (Folic Acid) 1 mg PO DAILY [facility] Last Admin: 01/01/18 08:04 Dose: 1 mg Furosemide (Lasix) 20 mg PO DAILY [facility] Last Admin: 01/01/18 08:04 Dose: 20 mg Home Med (Raloxifene [Evista]) 60 mg PO DAILY [facility] Last Admin: 01/01/18 08:04 Dose: 60 mg Lidocaine (Lidoderm) 1 ea TD DAILY [facility] Last Admin: 01/01/18 08:04 Dose: 1 ea Pyridoxine HCl (Vitamin B6) 25 mg PO DAILY [facility] Last Admin: 01/01/18 08:03 Dose: 25 mg - Labs Labs: 12/23/17 05:20 12/23/17 08:30
[2018-01-01 20:02] VITALS: RESP 20
[2018-01-02] MEDS: Patient's Own Med (Raloxifene [Evista] 60 MG) PO SCH (08:18)
[2018-01-02 08:19] VITALS: BP 156/72; PULSE 60; TEMP 98.1; O2SAT 97
[2018-01-02] MEDS: Lidocaine 5% Patch TD SCH (08:19)
--- NOTE | 2018-01-02 12:12 | CP.PCM.PN ---
Subjective - Date & Time of Evaluation Date of Evaluation: 01/02/18 Time of Evaluation: 10:00 - Subjective Subjective: no acute complaints Objective - Vital Signs/Intake and Output Vital Signs (last 24 hours): Temp Pulse Resp BP Pulse Ox 98.1 F 60 20 156/72 H 97 01/02/18 08:18 01/02/18 08:18 01/02/18 08:18 01/02/18 08:19 01/02/18 08:18 - Medications Medications: Current Medications Acetaminophen (Tylenol 325mg Tab) 650 mg PO Q4 PRN PRN Reason: Pain scale 1-10. Last Admin: 12/30/17 17:02 Dose: 650 mg Amiodarone HCl (Cordarone) 200 mg PO QPM [facility] Last Admin: 01/01/18 17:36 Dose: 200 mg Artificial Tears (Refresh Opth Soln) 0.3 ml OU Q6 PRN PRN Reason: Dry eyes Last Admin: 01/01/18 08:04 Dose: 0.3 ml Atorvastatin Calcium (Lipitor) 10 mg PO HS [facility] Last Admin: 01/01/18 21:31 Dose: 10 mg Calcium Carbonate (Oscal) 500 mg PO DAILY [facility] Last Admin: 01/02/18 08:19 Dose: 500 mg Famotidine (Pepcid) 40 mg PO HS [facility] Last Admin: 01/01/18 21:31 Dose: 40 mg Folic Acid (Folic Acid) 1 mg PO DAILY [facility] Last Admin: 01/02/18 08:19 Dose: 1 mg Furosemide (Lasix) 20 mg PO DAILY [facility] Last Admin: 01/02/18 08:19 Dose: 20 mg Home Med (Raloxifene [Evista]) 60 mg PO DAILY [facility] Last Admin: 01/02/18 08:18 Dose: 60 mg Lidocaine (Lidoderm) 1 ea TD DAILY [facility] Last Admin: 01/02/18 08:19 Dose: 1 ea Pyridoxine HCl (Vitamin B6) 25 mg PO DAILY [facility] Last Admin: 01/02/18 08:18 Dose: 25 mg - Labs Labs: 12/23/17 05:20 12/23/17 08:30 - Head Exam Head Exam: ATRAUMATIC, NORMAL INSPECTION, NORMOCEPHALIC - Eye Exam Eye Exam: EOMI, Normal appearance, PERRL Pupil Exam: NORMAL ACCOMODATION - ENT Exam ENT Exam: Mucous Membranes Moist, Normal Exam - Neck Exam Neck Exam: Normal Inspection - Respiratory Exam Respiratory Exam: NORMAL BREATHING PATTERN - Cardiovascular Exam Cardiovascular Exam: REGULAR RHYTHM - GI/Abdominal Exam GI & Abdominal Exam: Soft - Rectal Exam Rectal Exam: NORMAL INSPECTION - Exam External exam: NORMAL EXTERNAL EXAM - Extremities Exam Extremities Exam: Full ROM, Normal Capillary Refill, Normal Inspection - Back Exam Back Exam: NORMAL INSPECTION - Neurological Exam Neurological Exam: Alert, Awake Neuro motor strength exam: Left Upper Extremity: 3, Right Upper Extremity: 3, Left Lower Extremity: 3, Right Lower Extremity: 3 - Psychiatric Exam Psychiatric exam: Normal Affect, Normal Mood - Skin Skin Exam: Dry, Intact Assessment and Plan (1) Facial bones, closed fracture Status: Acute (2) Head injury Status: Acute (3) Humerus fracture Status: Acute (4) Impacted cerumen of right ear Status: Acute (5) Metacarpal bone fracture Status: Acute (6) Near syncope Status: Acute (7) Orbital floor fracture Status: Acute (8) Subdural hematoma Assessment & Plan: plan for pt, ot therapy Dc for home with services Status: Acute
--- NOTE | 2018-01-02 12:15 | CP.PCM.PN ---
Subjective - Date & Time of Evaluation Date of Evaluation: 01/01/18 Time of Evaluation: 13:00 - Subjective Subjective: no acute complaints of neck or back pain Objective - Vital Signs/Intake and Output Vital Signs (last 24 hours): Temp Pulse Resp BP Pulse Ox 98.1 F 60 20 156/72 H 97 01/02/18 08:18 01/02/18 08:18 01/02/18 08:18 01/02/18 08:19 01/02/18 08:18 - Medications Medications: Current Medications Acetaminophen (Tylenol 325mg Tab) 650 mg PO Q4 PRN PRN Reason: Pain scale 1-10. Last Admin: 12/30/17 17:02 Dose: 650 mg Amiodarone HCl (Cordarone) 200 mg PO QPM [facility] Last Admin: 01/01/18 17:36 Dose: 200 mg Artificial Tears (Refresh Opth Soln) 0.3 ml OU Q6 PRN PRN Reason: Dry eyes Last Admin: 01/01/18 08:04 Dose: 0.3 ml Atorvastatin Calcium (Lipitor) 10 mg PO HS [facility] Last Admin: 01/01/18 21:31 Dose: 10 mg Calcium Carbonate (Oscal) 500 mg PO DAILY [facility] Last Admin: 01/02/18 08:19 Dose: 500 mg Famotidine (Pepcid) 40 mg PO HS [facility] Last Admin: 01/01/18 21:31 Dose: 40 mg Folic Acid (Folic Acid) 1 mg PO DAILY [facility] Last Admin: 01/02/18 08:19 Dose: 1 mg Furosemide (Lasix) 20 mg PO DAILY [facility] Last Admin: 01/02/18 08:19 Dose: 20 mg Home Med (Raloxifene [Evista]) 60 mg PO DAILY [facility] Last Admin: 01/02/18 08:18 Dose: 60 mg Lidocaine (Lidoderm) 1 ea TD DAILY [facility] Last Admin: 01/02/18 08:19 Dose: 1 ea Pyridoxine HCl (Vitamin B6) 25 mg PO DAILY [facility] Last Admin: 01/02/18 08:18 Dose: 25 mg - Labs Labs: 12/23/17 05:20 12/23/17 08:30 - Head Exam Head Exam: ATRAUMATIC, NORMAL INSPECTION, NORMOCEPHALIC - Eye Exam Eye Exam: EOMI, Normal appearance, PERRL Pupil Exam: NORMAL ACCOMODATION - ENT Exam ENT Exam: Mucous Membranes Moist, Normal Exam - Neck Exam Neck Exam: Normal Inspection - Respiratory Exam Respiratory Exam: Clear to Ausculation Bilateral, NORMAL BREATHING PATTERN - Cardiovascular Exam Cardiovascular Exam: REGULAR RHYTHM - GI/Abdominal Exam GI & Abdominal Exam: Soft, Normal Bowel Sounds - Rectal Exam Rectal Exam: NORMAL INSPECTION - Exam External exam: NORMAL EXTERNAL EXAM - Extremities Exam Extremities Exam: Full ROM, Normal Capillary Refill, Normal Inspection - Back Exam Back Exam: NORMAL INSPECTION - Neurological Exam Neurological Exam: Alert, Awake Neuro motor strength exam: Left Upper Extremity: 3, Right Upper Extremity: 3, Left Lower Extremity: 3, Right Lower Extremity: 3 - Psychiatric Exam Psychiatric exam: Normal Affect, Normal Mood - Skin Skin Exam: Dry, Intact Assessment and Plan (1) Facial bones, closed fracture Status: Acute (2) Head injury Status: Acute (3) Humerus fracture Status: Acute (4) Impacted cerumen of right ear Status: Acute (5) Metacarpal bone fracture Status: Acute (6) Near syncope Status: Acute (7) Orbital floor fracture Status: Acute (8) Subdural hematoma Assessment & Plan: plan for physical, occupational, rec therapy program Status: Acute
--- NOTE | 2018-01-03 00:01 | CP.PCM.PN ---
Subjective - Date & Time of Evaluation Date of Evaluation: 01/01/18 Time of Evaluation: 17:15 Objective - Vital Signs/Intake and Output Vital Signs (last 24 hours): Temp Pulse Resp BP Pulse Ox 98.1 F 60 20 156/72 H 97 01/02/18 08:18 01/02/18 08:18 01/02/18 08:18 01/02/18 16:35 01/02/18 08:18 - Labs Labs: 12/23/17 05:20 12/23/17 08:30 Assessment and Plan (1) Syncope Status: Acute (2) Head injury Status: Acute (3) Subdural hematoma Status: Acute (4) Temporal bone fracture Status: Acute
--- NOTE | 2018-01-03 00:02 | CP.PCM.DIS ---
Provider - Provider Date of Admission: 12/22/17 12:34 Attending physician: Rajat Dawn MD Time Spent in preparation of Discharge (in minutes): 25 Diagnosis - Discharge Diagnosis (1) Syncope Status: Acute (2) Head injury Status: Acute (3) Subdural hematoma Status: Acute (4) Temporal bone fracture Status: Acute Hospital Course - Lab Results Lab Results: Most Recent Lab Values WBC 7.3 K/uL (4.8-10.8) 12/23/17 05:20 RBC 4.35 Mil/uL (3.80-5.20) 12/23/17 05:20 Hgb 13.6 g/dL (12.0-16.0) 12/23/17 05:20 Hct 40.3 % (34.0-47.0) 12/23/17 05:20 MCV 92.8 fl (81.0-99.0) 12/23/17 05:20 MCH 31.4 pg (27.0-31.0) H 12/23/17 05:20 MCHC 33.8 g/dL (33.0-37.0) 12/23/17 05:20 RDW 13.3 % (11.5-14.5) 12/23/17 05:20 Plt Count 133 K/uL (130-400) 12/23/17 05:20 MPV 9.0 fl (7.2-11.7) 12/23/17 05:20 Neut % (Auto) 70.1 % (50.0-75.0) 12/23/17 05:20 Lymph % (Auto) 16.9 % (20.0-40.0) L 12/23/17 05:20 [place] % (Auto) 8.2 % (0.0-10.0) 12/23/17 05:20 Eos % (Auto) 3.8 % (0.0-4.0) 12/23/17 05:20 Baso % (Auto) 1.0 % (0.0-2.0) 12/23/17 05:20 Neut # (Auto) 5.1 K/uL (1.8-7.0) 12/23/17 05:20 Lymph # (Auto) 1.2 K/uL (1.0-4.3) 12/23/17 05:20 [place] # (Auto) 0.6 K/uL (0.0-0.8) 12/23/17 05:20 Eos # (Auto) 0.3 K/uL (0.0-0.7) 12/23/17 05:20 Baso # (Auto) 0.1 K/uL (0.0-0.2) 12/23/17 05:20 Sodium 140 mmol/l (132-148) 12/23/17 08:30 Potassium 4.2 MMOL/L (3.6-5.0) 12/23/17 08:30 Chloride 109 mmol/L (98-107) H 12/23/17 08:30 Carbon Dioxide 25 mmol/L (22-30) 12/23/17 08:30 Anion Gap 10 (10-20) 12/23/17 08:30 BUN 23 mg/dl (7-17) H 12/23/17 08:30 Creatinine 1.0 mg/dl (0.7-1.2) 12/23/17 08:30 Est GFR ( Amer) > 60 12/23/17 08:30 Est GFR (Non-Af Amer) 52 12/23/17 08:30 Random Glucose 86 mg/dL (65-105) 12/23/17 08:30 Calcium 9.1 mg/dL (8.4-10.2) 12/23/17 08:30 Magnesium 2.2 MG/DL (1.6-2.3) 12/23/17 05:20 Total Bilirubin 0.8 mg/dl (0.2-1.3) 12/23/17 08:30 AST 31 U/L (14-36) 12/23/17 08:30 ALT 28 U/L (9-52) 12/23/17 08:30 Alkaline Phosphatase 47 U/L (38-126) 12/23/17 08:30 Total Protein 6.3 G/DL (6.3-8.2) 12/23/17 08:30 Albumin 3.4 g/dL (3.5-5.0) L 12/23/17 08:30 Globulin 2.9 gm/dL (2.2-3.9) 12/23/17 08:30 Albumin/Globulin Ratio 1.2 (1.0-2.1) 12/23/17 08:30 Vitamin B12 > 1000 pg/mL (239-931) H 12/23/17 05:20 TSH 3rd Generation 3.03 mIU/ML (0.46-4.68) 12/23/17 05:20 Discharge Exam - Head Exam Head Exam: ATRAUMATIC, NORMAL INSPECTION, NORMOCEPHALIC Discharge Plan - Follow Up Plan Condition: GOOD Disposition: HOME/ ROUTINE Instructions: Calcium and Vitamin D, Preventing Falls in the Older Adult, Lidocaine (Topical), Preventing Falls, Amiodarone, Atorvastatin, Famotidine, Folic Acid, Furosemide, Pyridoxine, Raloxifene, Subdural Hematoma (DC)
== END 2018-01-02 15:15 | disposition home health service (06) | DRG 946 ==
PROVIDERS: ADMIT Internal Medicine; ATTEND Internal Medicine
PROC: F07Z9FZ Gait Training/Functional Ambulation Treatment using Assistive, Adaptive, Supportive or Protective Equipment (ICD-10-PCS; principal; 2017-12-22)
PROC: F08Z4FZ Home Management Treatment using Assistive, Adaptive, Supportive or Protective Equipment (ICD-10-PCS; 2017-12-22)
PROC: F07J6FZ Therapeutic Exercise Treatment of Musculoskeletal System - Head and Neck using Assistive, Adaptive, Supportive or Protective Equipment (ICD-10-PCS; 2017-12-22)
PROC: F07M6FZ Therapeutic Exercise Treatment of Musculoskeletal System - Whole Body using Assistive, Adaptive, Supportive or Protective Equipment (ICD-10-PCS; 2017-12-23)
DX: S06.5X9D Traumatic subdural hemorrhage with loss of consciousness of unspecified duration, subsequent encounter (principal); S02.102 Fracture of base of skull, left side; S02.11 Fracture of occiput; S02.32XD Fracture of orbital floor, left side, subsequent encounter for fracture with routine healing; H61.21 Impacted cerumen, right ear; I11.0 Hypertensive heart disease with heart failure; I50.9 Heart failure, unspecified; I35.0 Nonrheumatic aortic (valve) stenosis; I48.91 Unspecified atrial fibrillation; I27.20 Pulmonary hypertension, unspecified; M81.0 Age-related osteoporosis without current pathological fracture; E78.5 Hyperlipidemia, unspecified; M19.90 Unspecified osteoarthritis, unspecified site; E78.00 Pure hypercholesterolemia, unspecified; Z95.2 Presence of prosthetic heart valve; Z91.81 History of falling; Z85.820 Personal history of malignant melanoma of skin; Z87.440 Personal history of urinary (tract) infections; X58.XXXD Exposure to other specified factors, subsequent encounter